=== PATIENT | male | born 1995 | race Caucasian/White ===

== ENCOUNTER 2017-12-04 13:26 | Emergency (ER) | payer BC ==
[2017-12-04] MEDS ORDERED: Famotidine 20 MG/2 ML SDV IVPUSH ONE (13:46)
[2017-12-04] MEDS ORDERED: Sodium Chloride 0.9% 2.5 ML Syringe FLUSH PRN (13:46)
[2017-12-04] MEDS ORDERED: Ondansetron 4 MG/2 ML SDV IVPUSH ONE (13:46)
[2017-12-04] MEDS ORDERED: Sodium Chloride 0.9% 1,000 ML IV ONE (13:46)
[2017-12-04] MEDS ORDERED: Sodium Chloride 0.9% 10 ML Syringe FLUSH PRN (13:46)
--- NOTE | 2017-12-04 13:51 | EDM.PDOC ---
ED HPI GENERAL MEDICAL PROBLEM - General Chief Complaint: Abdominal Pain Stated Complaint: ABD PAIN Time Seen by Provider: 12/04/17 13:28 Source of Information: Reports: Patient History Limitations: Reports: No Limitations - History of Present Illness INITIAL COMMENTS - FREE TEXT/NARRATIVE: History of present illness: []Patient started having left upper quadrant pain 9:00 this morning with nonbloody vomiting and diarrhea. He denies any back pain, fevers, chills or problems urinating. Patient ate a tuna sandwich and chicken noodle soup 45 minutes ago but did not change the pain. Patient has history of cholecystectomy and appendectomy. Review of systems: As per history of present illness and below otherwise all systems reviewed and negative. Past medical history: As per history of present illness and as reviewed below otherwise noncontributory. Surgical history: As per history of present illness and as reviewed below otherwise noncontributory. Social history: No reported history of drug or alcohol abuse. Family history: As per history of present illness and as reviewed below otherwise noncontributory. Physical exam: General: Well developed, well nourished in NAD HEENT: Atraumatic, normocephalic, pupils reactive, negative for conjunctival pallor or scleral icterus, mucous membranes moist, throat clear, neck supple, nontender, trachea midline. Lungs: Clear to auscultation, breath sounds equal bilaterally, chest nontender. Heart: S1S2, regular, negative for clicks, rubs, or JVD. Abdomen: Soft, nondistended, nontender. Negative for masses or hepatosplenomegaly. Negative for costovertebral tenderness. Pelvis: Stable nontender. Genitourinary: Deferred. Rectal: Deferred. Extremities: Atraumatic, negative for cords or calf pain. Neurovascular unremarkable. Neuro: Awake, alert, oriented. Cranial nerves II through XII unremarkable. Cerebellum unremarkable. Motor and sensory unremarkable throughout. Exam nonfocal. Diagnostics: []Labs and CT showing 6 mm stone left UVJ Therapeutics: []IV fluids and Zofran and Pepcid given alleviated pain Impression: []Left ureterolithiasis Plan: []Increase fluids, tramadol, Flomax, Zofran for pain and nausea follow-up with Definitive disposition and diagnosis as appropriate pending reevaluation and review of above. Left Lower Abdomen Pain Score (Numeric/FACES): 10 - Related Data Allergies Allergy/AdvReac Type Severity Reaction Status Date / Time No Known Allergies Allergy Verified 12/04/17 13:43 Home Meds: Home Meds Ondansetron HCl [Zofran] 4 mg PO Q4HR PRN #10 tablet 12/04/17 [Rx] Tamsulosin [Tamsulosin 24 Hr] 0.4 mg PO BID #14 cap.er 12/04/17 [Rx] traMADol HCl [Tramadol HCl] 50 mg PO Q6H PRN #16 tablet 12/04/17 [Rx] Past Medical History - Past Health History Medical/Surgical History: Denies Medical/Surgical History HEENT History: Reports: None Cardiovascular History: Reports: None Respiratory History: Reports: None Gastrointestinal History: Reports: None Genitourinary History: Reports: None Musculoskeletal History: Reports: None Neurological History: Reports: Migraines Psychiatric History: Reports: None Endocrine/Metabolic History: Reports: None Hematologic History: Reports: None Immunologic History: Reports: None Oncologic (Cancer) History: Reports: None Dermatologic History: Reports: None - Infectious Disease History Infectious Disease History: Reports: Chicken Pox - Past Surgical History Head Surgeries/Procedures: Reports: None HEENT Surgical History: Reports: None Cardiovascular Surgical History: Reports: None Respiratory Surgical History: Reports: None GI Surgical History: Reports: Appendectomy, Cholecystectomy Male Surgical History: Reports: None Endocrine Surgical History: Reports: None Neurological Surgical History: Reports: None Musculoskeletal Surgical History: Reports: None Oncologic Surgical History: Reports: None Dermatological Surgical History: Reports: None Social & Family History - Family History Family Medical History: Noncontributory HEENT: Reports: None Cardiac: Reports: None Respiratory: Reports: None GI: Reports: None : Reports: None OBGYN: Reports: None Musculoskeletal: Reports: None Neurological: Reports: None Psychiatric: Reports: None Endocrine/Metabolic: Reports: Diabetes, Type I Hematologic: Reports: None - Tobacco Use Smoking Status *Q: Never Smoker Years of Tobacco use: 1 Used Tobacco, but Quit: Yes Second Hand Smoke Exposure: No - Caffeine Use Caffeine Use: Reports: None - Alcohol Use Days Per Week of Alcohol Use: 0 - Recreational Drug Use Recreational Drug Use: No Drug Use in Last 12 Months: No ED ROS GENERAL - Review of Systems Review Of Systems: See Below (See history of present illness) ED EXAM, GI/ABD - Physical Exam Exam: See Below (See history of present illness) Course - Vital Signs Last Recorded V/S: Last Vital Signs Temp 97.6 F 12/04/17 13:48 Pulse 102 H 12/04/17 13:48 Resp 18 12/04/17 13:48 BP 164/102 H 12/04/17 13:48 Pulse Ox 98 12/04/17 13:48 - Orders/Labs/Meds Orders: Active Orders 24 hr Category Date Time Status Abdomen Pelvis wo Cont [CT] Stat Exams 12/04/17 14:39 Taken Sodium Chloride 0.9% [Saline Flush] Med 12/04/17 13:46 Active 10 ml FLUSH ASDIRECTED PRN Sodium Chloride 0.9% [Saline Flush] Med 12/04/17 13:46 Active 2.5 ml FLUSH ASDIRECTED PRN Saline Lock Insert [OM.PC] Stat Oth 12/04/17 13:46 Ordered Medication Orders Sodium Chloride (Saline Flush) 10 ml FLUSH ASDIRECTED PRN PRN Reason: Keep Vein Open Last Admin: 12/04/17 14:03 Dose: 10 ml Sodium Chloride (Saline Flush) 2.5 ml FLUSH ASDIRECTED PRN PRN Reason: Keep Vein Open Last Admin: 12/04/17 14:03 Dose: 2.5 ml Labs: Laboratory Tests 12/04/17 12/04/17 12/04/17 Range/Units 13:53 13:53 13:55 WBC 7.04 (4.0-11.0) K/uL RBC 5.45 (4.50-5.90) M/uL Hgb 16.4 (13.0-17.0) g/dL Hct 46.9 (38.0-50.0) % MCV 86.1 (80.0-98.0) fL MCH 30.1 (27.0-32.0) pg MCHC 35.0 (31.0-37.0) g/dL RDW Std Deviation 40.1 (28.0-62.0) fl RDW Coeff of Imelda 13 (11.0-15.0) % Plt Count 266 (150-400) K/uL MPV 9.60 (7.40-12.00) fL Neut % (Auto) 54.6 (48.0-80.0) % Lymph % (Auto) 28.0 (16.0-40.0) % [place] % (Auto) 13.2 (0.0-15.0) % Eos % (Auto) 3.8 (0.0-7.0) % Baso % (Auto) 0.4 (0.0-1.5) % Neut # (Auto) 3.8 (1.4-5.7) K/uL Lymph # (Auto) 2.0 (0.6-2.4) K/uL [place] # (Auto) 0.9 H (0.0-0.8) K/uL Eos # (Auto) 0.3 (0.0-0.7) K/uL Baso # (Auto) 0.0 (0.0-0.1) K/uL Nucleated RBC % 0.0 /100WBC Nucleated RBCs # 0 K/uL Sodium 141 (136-146) mmol/L Potassium 4.4 (3.5-5.1) mmol/L Chloride 106 (98-110) mmol/L Carbon Dioxide 21 (21-31) mmol/L BUN 11 (6.0-23.0) mg/dL Creatinine 1.1 (0.6-1.5) mg/dL Est Cr Clr Drug Dosing 128.23 mL/min Estimated GFR (MDRD) > 60.0 ml/min Glucose 92 (60-110) mg/dL Calcium 10.0 (8.8-10.8) mg/dL Total Bilirubin 0.8 (0.1-1.5) mg/dL AST 79 H (5-40) IU/L ALT 140 H (8-54) IU/L Alkaline Phosphatase 66 (40-150) Total Protein 8.7 H (6.0-8.0) g/dL Albumin 4.8 (3.5-5.0) g/dL Globulin 3.9 H (2.0-3.5) g/dL Albumin/Globulin Ratio 1.2 L (1.3-2.8) Lipase 26 (7-80) U/L Urine Color YELLOW Urine Appearance CLEAR Urine pH 6.5 (5.0-8.0) Ur Specific [place] 1.025 (1.001-1.035) Urine Protein NEGATIVE (NEGATIVE) mg/dL Urine Glucose (UA) NEGATIVE (NEGATIVE) mg/dL Urine Ketones NEGATIVE (NEGATIVE) mg/dL Urine Occult Blood LARGE H (NEGATIVE) Urine Nitrite NEGATIVE (NEGATIVE) Urine Bilirubin NEGATIVE (NEGATIVE) Urine Urobilinogen 1.0 (<2.0) EU/dL Ur Leukocyte Esterase NEGATIVE (NEGATIVE) Urine RBC 25-30 (0-2/HPF) Urine WBC 0-1 (0-5/HPF) Ur Epithelial Cells RARE (NONE-FEW) Urine Bacteria RARE (NEGATIVE) Meds: Medications Generic Name Dose Route Start Last Admin Trade Name Freq PRN Reason Stop Dose Admin Sodium Chloride 10 ml 12/04/17 13:46 12/04/17 14:03 Saline Flush FLUSH 10 ml ASDIRECTED PRN Administration Keep Vein Open Sodium Chloride 2.5 ml 12/04/17 13:46 12/04/17 14:03 Saline Flush FLUSH 2.5 ml ASDIRECTED PRN Administration Keep Vein Open Discontinued Medications Generic Name Dose Route Start Last Admin Trade Name Freq PRN Reason Stop Dose Admin Famotidine 20 mg 12/04/17 13:46 12/04/17 14:02 Pepcid IVPUSH 12/04/17 13:47 20 mg ONETIME ONE Administration Sodium Chloride 1,000 mls @ 999 mls/hr 12/04/17 13:46 12/04/17 14:02 Normal Saline IV 12/04/17 14:46 999 mls/hr .Bolus ONE Administration Ondansetron HCl 4 mg 12/04/17 13:46 12/04/17 14:02 Zofran IVPUSH 12/04/17 13:47 4 mg ONETIME ONE Administration Departure - Departure Time of Disposition: 15:53 Disposition: Home, Self-Care 01 Condition: Good Clinical Impression: Ureterolithiasis - Discharge Information Prescriptions: Ondansetron HCl [Zofran] 4 mg PO Q4HR PRN #10 tablet PRN Reason: Nausea Tamsulosin [Tamsulosin 24 Hr] 0.4 mg PO BID #14 cap.er traMADol HCl [Tramadol HCl] 50 mg PO Q6H PRN #16 tablet PRN Reason: Pain Referrals: PCP,None [Primary Care Provider] - Solomon Seay MD [Physician] - (Call for follow-up appointment) Forms: ED Department Discharge Additional Instructions: The following information is given to patients seen in the emergency department who are being discharged to home. This information is to outline your options for follow-up care. We provide all patients seen in our emergency department with a follow-up referral. The need for follow-up, as well as the timing and circumstances, are variable depending upon the specifics of your emergency department visit. If you don't have a primary care physician on staff, we will provide you with a referral. We always advise you to contact your personal physician following an emergency department visit to inform them of the circumstance of the visit and for follow-up with them and/or the need for any referrals to a consulting specialist. The emergency department will also refer you to a specialist when appropriate. This referral assures that you have the opportunity for follow-up care with a specialist. All of these measure are taken in an effort to provide you with optimal care, which includes your follow-up. Under all circumstances we always encourage you to contact your private physician who remains a resource for coordinating your care. When calling for follow-up care, please make the office aware that this follow-up is from your recent emergency room visit. If for any reason you are refused follow-up, please contact the [facility] Emergency Department at and asked to speak to the emergency department charge nurse. Tramadol, Flomax and Zofran as needed for pain and nausea. Follow-up with urology return if symptoms worsen or change - My Orders Last 24 Hours: My Active Orders 12/04/17 13:46 Sodium Chloride 0.9% [Saline Flush] 10 ml FLUSH ASDIRECTED PRN Sodium Chloride 0.9% [Saline Flush] 2.5 ml FLUSH ASDIRECTED PRN Saline Lock Insert [OM.PC] Stat 12/04/17 14:39 Abdomen Pelvis wo Cont [CT] Stat - Assessment/Plan Last 24 Hours: My Active Orders 12/04/17 13:46 Sodium Chloride 0.9% [Saline Flush] 10 ml FLUSH ASDIRECTED PRN Sodium Chloride 0.9% [Saline Flush] 2.5 ml FLUSH ASDIRECTED PRN Saline Lock Insert [OM.PC] Stat 12/04/17 14:39 Abdomen Pelvis wo Cont [CT] Stat
[2017-12-04 14:26] LABS: CHLORIDE,CL 106 mmol/L (98-110); SODIUM,NA 141 mmol/L (136-146)
[2017-12-04 16:10] VITALS: BP 123/78
--- NOTE | 2017-12-06 18:05 | CT ---
EXAM DATE: 12/04/17 PATIENT'S AGE: 22 Patient: AMBER APONTE Facility: [place], [place] Site . Site : 1995 Study: CT Abdomen/Pelvis [id number]/[id number] 3:10:43 PM Ordering Physician: Inder Ruiz Final Report: Left-sided abdominal pain.TECHNIQUE: Contrast-enhanced CT abdomen pelvis with coronal sagittal re-formatted images obtained. COMPARISON: CT abdomen pelvis 08/06/2011. FINDINGS: Heart size normal. Basilar patchy atelectasis. No effusion. Fatty liver. Cholecystectomy. Pancreas gallbladder adrenal glands are unremarkable. Spleen is mildly enlarged measuring 13.8 cm. 6 mm left UVJ stone causes left mild to moderate hydronephrosis. No additional renal calculi. Right kidney is unremarkable. Appendectomy. Small fat containing umbilical hernia. Urinary bladder otherwise is unremarkable. Prostate gland and seminal vesicles are unremarkable. The osseous structures are unremarkable. Impression : 1. 6 millimeter left UVJ stone causes left mild to moderate hydronephrosis . 2. Fatty liver . Please note that all CT scans at this facility use dose modulation, iterative reconstruction, and/or weight-based dosing when appropriate to reduce radiation dose to as low as reasonably achievable. Dictated by Nena Zuñiga MD @ Dec 04 2017 3:49PM (Electronic Signature) Report Signed by Proxy. [facility]
== END 2017-12-04 16:11 | disposition home or self-care (01) ==
LOC: MW.ED 13:26
DX: N13.2 Hydronephrosis with renal and ureteral calculous obstruction (principal); Z87.891 Personal history of nicotine dependence
CPT/HCPCS: 36415; 74176; 80053; 81001; 83690; 85025; 96361; 96374; 96375; 99284; J2405; J7040; 99283

== ENCOUNTER 2023-03-01 06:11 | Emergency (ER) | payer BC, OTHER ==
[2023-03-01 06:31] VITALS: PULSE 81
[2023-03-01 08:24] VITALS: BP 132/75
== END 2023-03-01 08:23 | disposition home or self-care (01) ==
LOC: MW.ED 06:11
DX: K64.4 Residual hemorrhoidal skin tags (principal)
CPT/HCPCS: 99282

== ENCOUNTER 2023-11-04 01:29 | Emergency (ER) | payer BC ==
[2023-11-04] MEDS: Benzonatate 100 MG Cap PO ONE (01:54)
[2023-11-04 02:36] LABS: CORONAVIRUS COVID-19 NAA NEGATIVE (NEGATIVE); INFLUENZA A NAA NEGATIVE (NEGATIVE); INFLUENZA B NAA POSITIVE (NEGATIVE); RESPIRATORY SYNCYTIAL VIR NAA NEGATIVE (NEGATIVE)
[2023-11-04] MEDS: Oseltamivir 75 MG Cap PO ONE (03:02)
[2023-11-04 03:22] VITALS: BP 120/74; PULSE 92
== END 2023-11-04 03:20 | disposition home or self-care (01) ==
LOC: MW.ED 01:29
DX: J10.1 Influenza due to other identified influenza virus with other respiratory manifestations (principal); Z20.822 Contact with and (suspected) exposure to COVID-19; Z90.49 Acquired absence of other specified parts of digestive tract
CPT/HCPCS: 0241U; 71045; 87651; 99283; A9270

== ENCOUNTER 2025-08-14 11:51 | Emergency (ER) | payer OTHER ==
[2025-08-14] MEDS: Ondansetron 4 MG Tab.DIS PO ONE (12:58)
[2025-08-14 14:46] VITALS: BP 163/90; PULSE 99
== END 2025-08-14 14:52 | disposition home or self-care (01) ==
LOC: MW.ED 11:51
DX: S09.90XA Unspecified injury of head, initial encounter (principal); R11.0 Nausea; Z75.3 Unavailability and inaccessibility of health-care facilities; W22.8XXA Striking against or struck by other objects, initial encounter
CPT/HCPCS: 70450; 70486; 99284; A9270; 99283

== ENCOUNTER 2025-09-29 06:42 | Emergency (ER) | payer SELFPAY ==
[2025-09-29] MEDS ORDERED: Sodium Chloride 0.9% 2.5 ML Syringe FLUSH PRN (06:46)
[2025-09-29] MEDS ORDERED: Sodium Chloride 0.9% 10 ML Syringe FLUSH PRN (06:46)
[2025-09-29] MEDS: Ondansetron 4 MG/2 ML SDV IVPUSH ONE (06:58)
[2025-09-29 07:02] LABS: BASOPHILS ABSOLUTE AUTO 0.06 K/uL (0.00-0.20); BASOPHILS PERCENT AUTO 0.9 % (0.0-1.0); EOSINOPHILS ABSOLUTE AUTO 0.18 K/uL (0.00-0.45); EOSINOPHILS PERCENT AUTO 2.6 % (0.0-6.0); IMMATURE GRAN ABSOLUTE AUTO 0.02 K/uL (0.00-0.05); IMMATURE GRAN PERCENT AUTO 0.3 % (0.0-0.4); LYMPHOCYTES ABSOLUTE AUTO 2.67 K/uL (1.00-4.80); LYMPHOCYTES PERCENT AUTO 39.0 % (24.0-44.0); MEAN PLATELET VOLUME 9.2 fL (9.4-12.4); MONOCYTES ABSOLUTE AUTO 0.56 K/uL (0.00-0.80); MONOCYTES PERCENT AUTO 8.2 % (0.0-8.0); NEUTROPHILS ABSOLUTE AUTO 3.35 K/uL (1.80-7.70); NEUTROPHILS PERCENT AUTO 49.0 % (41.0-71.0); NRBC ABSOLUTE 0.00 K/uL (0.00-0.02); NRBC PERCENT 0.0 /100WBC (0.0-0.2); PLATELET COUNT,PLT 281 K/uL (150-400); RED BLOOD CELL COUNT 5.64 M/uL (4.52-5.90); WHITE BLOOD CELL COUNT,WBC 6.84 K/uL (3.9-11.3)
[2025-09-29] MEDS: Ketorolac 30 MG/ML SDV IVPUSH ONE (07:05)
[2025-09-29 07:29] LABS: A/G RATIO 1.1 (0.9-1.6); ALANINE AMINOTRANSFERASE,ALT 58.0 IU/L (14-63); ASPARTATE AMNIOTRANSFERASE,AST 32.0 IU/L (15-37); BILIRUBIN TOTAL 0.6 mg/dL (0.2-1.0); BLOOD UREA NITROGEN,BUN 13.0 mg/dL (7.0-18.0); CARBON DIOXIDE,CO2 27.3 mmol/L (21.0-32.0); CHLORIDE,CL 104.0 mmol/L (98-107); CREATININE 1.0 mg/dL (0.8-1.3); EST CRCL DRUG DOSING (CG) 129.1 mL/min; GLUCOSE RANDOM 107.0 mg/dL (74-106); POTASSIUM,K 4.5 mmol/L (3.5-5.1); PROTEIN TOTAL,TP 8.1 g/dL (6.4-8.2); SODIUM,NA 141.0 mmol/L (136-148)
[2025-09-29 07:30] LABS: ESTIMATED GFR 104.0 mL/min (>60)
[2025-09-29 08:07] VITALS: BP 119/76; PULSE 53
== END 2025-09-29 08:05 | disposition home or self-care (01) ==
LOC: MW.ED 06:42
DX: A08.4 Viral intestinal infection, unspecified (principal); J06.9 Acute upper respiratory infection, unspecified
CPT/HCPCS: 36415; 80053; 83690; 83735; 85025; 87428; 87651; 96361; 96374; 96375; 99284; J1885; J2405; J7030